=== PATIENT | male | born 1970 | race Caucasian/White ===

== ENCOUNTER 2022-05-21 20:14 | Emergency (ER) | payer MEDICARE, MEDICAID ==
[~2022-05-21] VITALS: Ht 154.9 cm; Wt 75.6 kg
[~2022-05-21 20:14] MED LIST: BENZ-16 MT; BENZ100C86 PO
[2022-05-21] MEDS ORDERED: DIPH25CA83 MT (22:57)
[2022-05-21 23:33] VITALS: BP 125/78
== END 2022-05-21 23:35 | disposition home or self-care (01) ==
LOC: ER 20:14
DX: L74.0 Miliaria rubra (principal); I10 Essential (primary) hypertension; Z86.39 Personal history of other endocrine, nutritional and metabolic disease
CPT/HCPCS: 99282